=== PATIENT | female | born 1985 | race Caucasian/White ===

== ENCOUNTER 2023-05-03 00:01 | Emergency (ER) | payer OTHER ==
[~2023-05-03] VITALS: Ht 165.1 cm; Wt 88.8 kg
[2023-05-03 00:40] VITALS: BP 117/70; PULSE 90; RESP 14; TEMP 98.1; O2SAT 96
[2023-05-03] MEDS ORDERED: CEPH-585 PO (01:36)
[2023-05-03] MEDS ORDERED: CHLO118M PO (01:38)
[2023-05-03] MEDS ORDERED: cephalexin 250mg capsule PO ONE (01:50)
== END 2023-05-03 01:56 | disposition home or self-care (01) ==
LOC: ER 00:02
DX: O26.892 Other specified pregnancy related conditions, second trimester (principal); Z3A.25 25 weeks gestation of pregnancy; Z79.2 Long term (current) use of antibiotics; Z79.899 Other long term (current) drug therapy
CPT/HCPCS: 99283